=== PATIENT | female | born 1955 | race Caucasian/White ===

== ENCOUNTER 2016-12-04 09:20 | Outpatient (CLI) | payer OTHER ==
[~2016-12-04 09:20] MED LIST: AUGMENTIN 875-1 EACH PO; CIPRO 500MG TA500 MG PO; GLUCOPHAGE 500500 MG PO; KEFLEX500 M1 PO; MOTRIN800 MG PO
== END 2016-12-04 10:15 | disposition home or self-care (01) ==
LOC: COP 09:20
DX: L02.211 Cutaneous abscess of abdominal wall (principal); Z48.00 Encounter for change or removal of nonsurgical wound dressing
CPT/HCPCS: G0463